=== PATIENT | male | born 1960 | race African-American/Black ===

== ENCOUNTER 2019-10-07 01:32 | Emergency (ER) | payer OTHER ==
--- NOTE | 2019-10-07 01:45 | ED ---
Shortness of Breath - HPI Summary HPI Summary: This patient is a 59 year old male presenting to [facility] with a chief complaint of shortness of breath an hour ago. He states he woke up in the middle of the night and was unable to breathe well. He denies nausea, vomiting, skin diaphoresis, chest pain, leg edema. He states he feels palpitations. He states a history of hypertension. Medications reviewed. Allergies noted. He states his SOB has lessened in severity since onset. - History of Current Complaint Hx Obtained From: Patient Onset/Duration: Lasting Hours - Allergy/Home Medications Allergies/Adverse Reactions: Allergies Allergy/AdvReac Type Severity Reaction Status Date / Time No Known Allergies Allergy Verified 10/07/19 01:42 PMH/Surg Hx/FS Hx/Imm Hx Cardiovascular History: Reports: Hx Hypertension Respiratory History: Denies: Hx Asthma - Family History Known Family History: Positive: Hypertension - Social History Occupation: Unemployed Lives: Alone Alcohol Use: None Hx Substance Use: No Substance Use Type: Reports: None Hx Tobacco Use: No Review of Systems Negative: Skin Diaphoresis Positive: Palpitations Positive: Shortness Of Breath Negative: Vomiting, Nausea All Other Systems Reviewed And Are Negative: Yes Physical Exam - Summary Physical Exam Summary: Constitutional: Well-developed, Well-nourished, Alert. (-) Distressed Skin: Warm, Dry HENT: Normocephalic; Atraumatic Eyes: Conjunctiva normal Neck: Musculoskeletal ROM normal neck. (-) JVD, (-) Stridor, (-) Tracheal deviation Cardio: Rhythm regular, rate tachycardic, Heart sounds normal; Intact distal pulses; Radial pulses are 2+ and symmetric. (-) Murmur Pulmonary/Chest wall: Effort normal. (-) Respiratory distress, (-) Wheezes, (-) Rales Abd: Soft, (-) tenderness, (-) Distension, (-) Guarding, (-) Rebound Musculoskeletal: (-) Edema Lymph: (-) Cervical adenopathy Neuro: Alert, Oriented x3 Psych: Mood and affect Normal Triage Information Reviewed: Yes Vital Signs On Initial Exam: Temp Pulse Resp BP Pulse Ox 97.8 F 104 26 131/73 98 10/07/19 01:35 10/07/19 01:42 10/07/19 01:42 10/07/19 01:42 10/07/19 01:42 Vital Signs Reviewed: Yes Procedures - Sedation Patient Received Moderate/Deep Sedation with Procedure: No Diagnostics - Laboratory Result Diagrams: 10/07/19 01:49 10/07/19 01:49 Lab Statement: Any lab studies that have been ordered have been reviewed, and results considered in the medical decision making process. - Radiology CXR Radiology Interpretation Completed By: ED Physician Summary of Radiographic Findings: No acute process. Pending official radiologist report. - EKG 0143 Cardiac Rate: Tachycardia - 105 BPM Summary of EKG Findings: Q-wave in III, T-wave inversion in aVL. ED Physician has reviewed and interpreted this EKG. Re-Evaluation - Re-Evaluation First Eval Re-Evaluation Time: 03:10 Change: Improved Comment: Feeling better, heart rate is in the 90s. Course/Dx - Course Course Of Treatment: Patient is here after waking up with shortness of breath. Patient's symptoms are are improving by time he got here with no intervention. Patient never felt this way before. Patient has no other symptoms. Patient had an EKG performed showing no acute changes. Patient had negative troponin, d -dimer. Patient had a TSH and amoxicillin as initially was tachycardic which improved with no intervention. Patient was found be hypokalemic and hypomagnesemic. Patient received 40 mEq of by mouth potassium and 2 g of IV magnesium. Patient had a negative chest x-ray for any acute changes. Patient had a negative BNP for evidence of new onset heart failure. Patient's spontaneous return to baseline and grossly normal labs, patient was discharged with PCP follow-up. - Diagnoses Provider Diagnoses: SOB (shortness of breath) Discharge ED - Sign-Out/Discharge Documenting (check all that apply): Patient Departure - Discharge - Discharge Plan Condition: Stable Disposition: HOME Patient Education Materials: Shortness of Breath (ED) Referrals: Zain Abdullahi MD [Primary Care Provider] - Additional Instructions: Follow up with your primary care provider to get your magnesium and potassium rechecked. Return to ED if experiencing chest pain, difficulty breathing, or any other concerning symptoms. - Billing Disposition and Condition Condition: STABLE Disposition: Home - Attestation Statements Document Initiated by Scribe: Yes Documenting Scribe: Emil Trivedi Provider For Whom Scribe is Documenting (Include Credential): MD Rico Kwon Attestation: I, Emil Trivedi, scribed for David Holguin MD on 10/07/19 at 0325. Scribe Documentation Reviewed: Yes Provider Attestation: The documentation as recorded by the scribe, Emil Trivedi accurately reflects the service I personally performed and the decisions made by me, David Holguin MD Status of Scribe Document: Viewed
[2019-10-07 01:55] LABS: ABS Basophils 0.1 10^3/ul (0-0.2); ABS Eosinophils 0.2 10^3/ul (0-0.6); ABS Lymphocytes 3.4 10^3/ul (1.0-4.8); ABS Monocytes 1.1 10^3/ul (0-0.8); ABS Neutrophils 5.9 10^3/ul (1.5-7.7); Eosinophil % 2.2 %; Hematocrit 43 % (42-52); Hemoglobin 14.5 g/dL (14.0-18.0); Lymphocyte % 31.4 %; Mean Corpuscular HGB Conc 33 g/dL (31-36); Mean Corpuscular Hemoglobin 30 pg (27-31); Mean Corpuscular Volume 89 fL (80-94); Mean Platelet Volume 7.4 fL (7.4-10.4); Nucleated Red Blood Cells % 0.1; Platelet Count 295 10^3/uL (150-450); Red Blood Count 4.86 10^6 /uL (4.18-5.48); Red Cell Distribution Width 13 % (10-15); White Blood Count 10.7 10^3/uL (3.5-10.8)
[2019-10-07 02:13] LABS: Albumin 4.2 g/dL (3.2-5.2); Albumin/Globulin Ratio 1.2 (1-3); BUN/Creatinine Ratio 17.7 (8-20); Calcium 9.8 mg/dL (8.6-10.3); EGFR African American 52.5 (>60); EGFR Non-African American 43.4 (>60); Globulin 3.6 g/dL (2-4); Magnesium 1.5 mg/dL (1.9-2.7); Potassium 3.2 mmol/L (3.5-5.0); Total Bilirubin 0.3 mg/dL (0.2-1.0); Total Protein 7.8 g/dL (6.4-8.9)
[2019-10-07 02:15] LABS: Troponin I 0.01 ng/mL (<0.03)
[2019-10-07] MEDS ORDERED: Magnesium Sulfate 2 GM IV* 2 GM/50 ML BAG IVPB ONE (02:18)
[2019-10-07] MEDS ORDERED: Potassium Chlor TAB* 20 MEQ TAB.ER PO ONE (02:18)
[2019-10-07 02:47] LABS: HIV 4th Generation Nonreactive (Nonreactive)
[2019-10-07 02:58] LABS: TSH (Thyroid Stimulating Horm) 4.6 mcIU/mL (0.34-5.60)
[2019-10-07 03:46] VITALS: BP 143/98
== END 2019-10-07 03:40 | disposition home or self-care (01) ==
LOC: ED 01:32
DX: R06.02 Shortness of breath (principal); I10 Essential (primary) hypertension
CPT/HCPCS: 36415; 71045; 80053; 83735; 83880; 84443; 84484; 85025; 85379; 87389; 93005; 96365; 99283; A9270-GY; J3475